=== PATIENT | male | born 2005 | race Caucasian/White ===

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

== ENCOUNTER 2023-03-24 23:00 | Emergency (ER) | payer OTHER, SELFPAY ==
--- NOTE | ~2023-03-24 | XR_ITS ---
EXAMINATION: XR hand LT 2V DATE: 03/25/2023 01:55 INDICATION: Left hand foreign body status post removal. TECHNIQUE: 2 views of left hand were obtained. COMPARISON: Left hand radiographs at 12:01 AM FINDINGS: Bone alignment is normal. No fracture. Joint spaces are normal. There is a punctate density at tip of third digit. IMPRESSION: 1. Punctate radiopaque foreign body in tip of third digit that may be at the skin. Reviewed, dictated and finalized at location E. IMPRESSION: 1. Punctate radiopaque foreign body in tip of third digit that may be at the sk in.
--- NOTE | ~2023-03-24 | XR_ITS ---
EXAMINATION: XR hand LT min 3V DATE: 03/25/2023 00:05 INDICATION: Left hand foreign body. TECHNIQUE: 3 views of left hand were obtained. COMPARISON: None. FINDINGS: Bone alignment is normal. No fracture. Joint spaces are normal. There is a punctate radiopa que foreign body in tip of third digit. There is a laceration of tip of third digit. IMPRESSION: 1. Punctate radiopaque foreign body at tip of third digit. Reviewed, dictated and finalized at location E.
--- NOTE | ~2023-03-24 | XR_ITS ---
EXAMINATION: XR hand RT min 3V DATE: 03/25/2023 00:05 INDICATION: Right hand foreign body. TECHNIQUE: 3 views of right hand were obtained. COMPARISON: None. FINDINGS: Bone alignment is normal. No fracture. Joint spaces are normal. IMPRESSION: 1. No radiopaque foreign body. Reviewed, dictated and finalized at location E.
[2023-03-24 23:02] VITALS: BP 148/83; PULSE 65; RESP 13; TEMP 37; O2SAT 100
[2023-03-25] MEDS: TETANUS,DIPHTHERIA,AC PERTUSSIS ADULT (0.5 ML) BOOSTRIX IM (00:15)
--- NOTE | 2023-03-25 00:47 | ED.GENADULT ---
HPI - General Adult General Chief complaint: Wound/Laceration <YOSELIN Richey Last Filed: 03/25/23 02:42> Stated complaint: bitaleral 3rd finger lacerations <Steven Pizano PA-C - Last Filed: 03/25/23 02:42> Time Seen by Provider: 03/24/23 23:33 <Steven Pizano PA-C - Last Filed: 03/25/23 02:42> Source: patient <YOSELIN Richey Last Filed: 03/25/23 02:42> Mode of arrival: ambulatory <YOSELIN Richey Last Filed: 03/25/23 02:42> Limitations: no limitations <Steven Pizano PA-C - Last Filed: 03/25/23 02:42> History of Present Illness HPI narrative: This is a 17-year-old male who presents to the ED with chief complaint of bilateral third finger lacerations. He had an injury tonight while cutting metal during his night class. Reports that he was try to cut the metal and had it clamped but the clamps failed. This caused the metal to jump up and cut the distal most aspects of his third fingers bilaterally. Reports a lot of initial bleeding but it has since resolved. Denies numbness, weakness. He is unsure of his last tetanus shot. <Steven Pizano PA-C - Last Filed: 03/25/23 02:42> Related Data Allergies/adverse reactions: Allergies Allergy/AdvReac Type Severity Reaction Status Date / Time No Known Allergies Allergy Verified 03/25/23 00:09 <Steven Pizano PA-C - Last Filed: 03/25/23 02:42> Review of Systems Review of Systems: All systems as dictated in HPI <YOSELIN Richey Last Filed: 03/25/23 02:42> [facility] Surgical History Surgical History: Surgical History (Updated 12/09/22 @ 02:12 by Tash Dos Santos NP) No pertinent past surgical history <Steven Pizano PA-C - Last Filed: 03/25/23 02:42> Family History Family History: Family History (Updated 12/09/22 @ 02:12 by Tash Dos Santos NP) Other Alcoholism <Steven Pizano PA-C - Last Filed: 03/25/23 02:42> Social History Social History: Social History (Updated 12/09/22 @ 02:13 by Tash Dos Santos NP) Social History: Patient stated that he stays with a foster family with his 2 other biological siblings. He has another sister but she is located with her father and rarely sees her. The patient is single and has no children. 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 Code status full code Smoking status: Current some day smoker Tobacco type: e-cigarettes/vaping Alcohol intake: current Drinks per week: 7 Substance use: current Substance use type: marijuana Lack of Transportation: No Lack of Food: Never True Current Housing: I Have Housing Concerned About Future Housing: YES Difficulty Paying Gas/Electric Bills: No Difficulty Paying for Meds: No Currently Unemployed: No Education: High School Diploma/GED Difficulty w/ Childcare or Family Care: No Spiritual care concerns: No <Steven Pizano PA-C - Last Filed: 03/25/23 02:42> Exam Narrative: GENERAL: Well-appearing, well-nourished, and in no acute distress. HEAD: Normocephalic, atraumatic. EYES: PERRLA and EOMI. ENT: Nares clear, no rhinorrhea or epistaxis. Mucous membranes moist. Oropharynx without tonsillar hypertrophy exudate or other lesions. NECK: Supple. No adenopathy or masses. CHEST: No respiratory distress. Clear to auscultation. No wheezes rales or rhonchi HEART: Regular rate and rhythm. No murmur heard. Normal peripheral pulses. ABDOMEN: Soft, nontender, nondistended, normal active bowel sounds. MSK: Normal range of motion. No edema. SKIN: 1.5 cm skin flap to the palmar surface of the right third finger. Bleeding controlled. No gaping wound. Again 1.5 cm skin flap laceration to the palmar aspect of the third middle finger on the left hand. This is more distal. Bleeding under control. NEURO: Alert and oriented x3. No focal deficits. PSYCH: Normal mood and affect. <Steven Pizano PA-C - [place]
== END 2023-03-25 01:40 | disposition home or self-care (01) ==
LOC: ANHED 03-25 01:25
PROVIDERS: Emergency Provider Physician Assistant
DX: S61.223A Laceration with foreign body of left middle finger without damage to nail, initial encounter (principal); S61.212A Laceration without foreign body of right middle finger without damage to nail, initial encounter; Z23 Encounter for immunization; F17.290 Nicotine dependence, other tobacco product, uncomplicated; W26.8XXA Contact with other sharp object(s), not elsewhere classified, initial encounter
CPT/HCPCS: 73120; 73130; 90471; 90715; 99284

== ENCOUNTER 2024-11-07 18:54 | Emergency (ER) | payer OTHER, SELFPAY ==
--- NOTE | ~2024-11-07 | CT_ITS ---
History: Blunt trauma PROCEDURE: CT head without contrast. COMPARISON: 12/08/2022 TECHNIQUE: Axial imaging of the head performed from the skull base to the vertex without IV contrast. Sagittal a nd coronal reformations obtained. DLP: 605 mGy-cm FINDINGS: The ventricles are normal in size, shape and position. There is no mass, mass effect or midline shift. There is no abnormal extra-axial fluid collection or intracranial hemorrhage. Visualized paranasal sinuses are clear. The mastoid air cells are well aerated. No acute displaced fractures within the overlying cranium. Impression: No acute intracranial hemorrhage or suspicious mass effect. Reviewed, dictated and finalized at location A. Impression: No acute intracranial hemorrhage or suspicious mass effect.
--- OUTSIDE RECORDS SUMMARY | 2024-11-07 18:56 | XMS_ITS | Continuity of Care Document ---
Author Organization [facility] Address [address] [place] [address] Phone Care Team Providers Care Deputy Manager Name Role Phone Mini Mc MD Unavailable Unavailable Allergies, Adverse Reactions, Alerts Substance Reaction Status Criticality No Known Allergies Active No Inform ation Medications Medication Instructions Dosage Effective Dates (start - stop) Status Comments No Drug Therapy Prescribed Advance Directives Directive Yes / No Effective Date File Name No Information Encounters Encounter Description Practice Location Reason(s) For Visit Diagnoses Date Provider Providers Copied on Encounter [facility], [address], [place], [place], [address] , tel: [phone] [facility] No Information 9 Alexandro Morse. [address], [facility] [place], [address], [place]. [phone] Referring Provider: Mini Mc [address] [facility] [address], [place], [address] . tel:[phone] [facility], [address], [place], [place], [address] , tel:[phone] [facility] Encntr for routine child health exam w/o abnormal findings 7 Alexandro Morse. [address], [facility] [place], [place], [address], . tel:[phone] Referring Provider: Mini Mc, [address], [place], [address] . tel:[phone] [facility], [address], [place], [place], [address] , [place] tel: [phone] [facility] Learning disorder Jul-0 7 Alexandro Morse. [address] , [address], [place], [place], [address], [place]. tel:[phone] Referring Provider: Mini Mc, [address], [place], [address] . tel:[phone] [facility], [address], [place], [place], [address] , tel: [phone] [facility] Encounter for routine childLearning disorder 6 Alexandro Morse. [address] , [address], [place], [place], [address], [place]. tel:[phone] Referring Provider: Mini Mc, [address], [place], [address] . tel:[phone] [facility], [address], [place], [place], [address] , [place] tel: [phone] [facility] Contact dermatitis due to poison floridalma 6 Jules Rivera. [address] [facility], [place], [place], [address], [place]. tel:[phone] Referring Provider: Nicole womack, [address] [facility], [place], [address] . tel:[phone] [facility], [address], [place], [place], [address] , [place] tel: [phone] [facility] Learning disorder 6 Alexandro Morse. [address] , [address], [place], [place], [address], [place]. tel:[phone] Referring Provider: Mini Mc, [address], [place], [address] . tel:[phone] [facility], [address], [place], [place], [address] , tel: [phone] [facility] No Information Alexandro Morse. [address] , [address], [place], [place], [address], . tel:[phone] Referring Provider: Mini Mc, [address], [place], [address] . tel:[phone] [facility], [address], [place], [place], [address] , tel: [phone] [facility] Nocturnal enuresisUpper respiratory tract infection, unspecified upper respiratory infection Alexandro Morse. [address] , [address], [place], [place], [address], . tel:[phone] Referring Provider: Mini Mc, [address], [place], [address] . tel:[phone] [facility], [address], [place], [place], [address] , tel: [phone] [facility] Well child checkAttention deficit disorder with hyperactivityNoc turnal enuresis 4 Alexandro Morse. [address] , [address], [place], [place], [address], [place]. tel:[phone] Referring Provider: Mini Mc, [address], [place], [address] . tel:[phone] [facility], [address], [place], [place], [address] , tel: [phone] [facility] Attention deficit disorder with hyperactivity 4 Dioni Young. [address] , [address], [place], [place], [address], . tel:[phone] Referring Provider: Mini Mc, [address], [place], [address] . tel:[phone] [facility], [address], [place], [place], [address] , tel: [phone] [facility] Routine infant or child health checkRoutine or child health checkAttention deficit disorder with hyperactivityRou bry infant or child health check 3 Alexandro Morse. [address], [address], [place], [place], [address], . tel:[phone] Referring Provider: Mini Mc, [address], [place], [address] . tel:[phone] [facility], [address], [place], [place], [address] , tel: [phone] [facility] ADHD Fe- 3 Alexandro Morse. [address], [address], [place], [place], [address], . tel:[phone] Referring Provider: Mini Mc, [address], [place], [address] . tel:[phone] [facility], [address], [place], [place], [address] , tel: [phone] [facility] Short statureHypothyro idismAttention deficit disorder with hyperactivity 0 2 Domonique Young. [address] , [address], [place], [place], [address], [place]. tel:[phone] Referring Provider: Hector Romano, [address], [place], [address] . tel:[phone] [facility], [address], [place], [place], [address] , tel: [phone] [facility] Attention deficit disorder with hyperactivityGro wth deceleration 2 Alexandro Morse. [address], [address], [place], [place], [address], . tel:[phone] Referring Provider: Mini Mc, [address], [place], [address] . tel:[phone] [facility], [address], [place], [place], [address] , tel: [phone] [facility] Routine or child health checkAttention deficit disorder with hyperactivityDys thymic disorderDysthymi c disorderRoutine or child health check 2 Alexandro Morse. [address], [address], [place], [place], [address], [place]. [phone] Referring Provider: Mini Mc [address], [place], [address] . tel:[phone] [facility], [address], [place], [place], [address] , tel: [phone] [facility] ADHDOppositional defiant disorder 1 Alexandro Morse. [address], [address], [place], [place], [address], [place]. [phone] Referring Provider: Mini Mc [address], [place], [address] . tel:[phone] [facility], [address], [place], [place], [address] , [place] tel: [phone] [facility] NEED FOR PROPHYLACTIC VACCINATION AND INOCULATION, INFLUENZANeed for prophylactic vaccination and inoculation against viralhepatitis 1 Dioni Young. [address], [address], [place], [place], [address], [place]. [phone] Referring Provider: Hector Wheatley [address], [place], [address] . tel:[phone] [facility], [address], [place], [place], [address] , [place] tel:[phone] [facility] Routine infant or child health checkEXAM EARS & HEARING NECExamination of eyes and visionAttention deficit disorder of childhood with hyperactivityNoc turnal enuresisRoutine infant or child health check 1 Alexandro Morse. [address], [address], [place], [place], [address], [place]. [phone] Referring Provider: Heaven [address], [place], [address] . tel:[phone] Family History Family Member Type Diagnosis Age At Onset No Information Immunizations Vaccine Date Status Comments Influenza, injectable, quadrivalent, preservative free, 3 yrs or older administered Source: New Immuniz ation Record meningococcal MCV4P administered Source: New Immunization Record Tdap administered Source: New Imm unization Record Influenza, injectable, quadrivalent, preservative free, 3 yrs or older administered Source: New Immuniz ation Record Influenza, live, intranasal, quadrivalent administered Source: New Immuniza tion Record Influenza virus vaccine, intranasal administered Source: New Immuniza tion Record Flu (split) (3 yrs or older) administered Source: New Immunization Record Hep A (ped/adol, 2 dose) administered Donna rce: New Immunization Record Flu (split) (3 yrs or older) administered Source: New Immunization Record Polio administered Source: New Imm unization Record Varicella administered Source: New Imm unization Record MMR administered Source: New Imm unization Record DTaP/DTP/DT administered Source: New Imm unization Record Hep A administered Source: New Imm unization Record PCV7 administered Source: New Imm unization Record HIB - unspecified administered Note: Set procedure code where blank for historical non-specific HIB entry. ; Source: New Immunization Record DTaP/DTP/DT administered Source: New Imm unization Record Varicella administered Source: New Imm unization Record MMR administered Source: New Imm unization Record PCV7 administered Source: New Imm unization Record Polio administered Source: New Imm unization Record HIB - unspecified administered Note: Set procedure code where blank for historical non-specific HIB entry. ; Source: New Immunization Record Hep B administered Source: New Imm unization Record DTaP/DTP/DT administered Source: New Imm unization Record PCV7 administered Source: New Imm unization Record Polio administered Source: New Imm unization Record HIB - unspecified administered Note: Set procedure code where blank for historical non-specific HIB entry. ; Source: New Immunization Record DTaP/DTP/DT administered Source: New Imm unization Record DTaP administered Source: Other R egistry PCV7 administered Source: New Imm unization Record Polio administered Source: New Imm unization Record HIB - unspecified administered Note: Set procedure code where blank for historical non-specific HIB entry. ; Source: New Immunization Record Hep B administered Source: New Imm unization Record Hep B administered Source: New Imm unization Record Payers Payer name Insurance type Covered democrat ID Authoriza tion(s) [facility] CI [id number] [facility] CI [id number] [facility] CI [id number] Social History Type Description Quantity Date Captured Comments Sex Male Smoking Status No Information Chief Complaint And Reason For Visit No Information Reason For Referral Reason For Referral No Information History Of Present Illness Encounter Date Complaint History Of Prese nt Illness No Information Functional Status Date Functional Assessmen t No Information Medications Administered Medication Instructions Dosage Effective Dates (start - stop) Status Comments No Drug Therapy Prescribed Instructions Date Instruction Additional Infor mation No Information Assessments Type Assessment Date No Information Patient Care Teams Name Effective Dates (start - stop) Status Members No Information
--- OUTSIDE RECORDS SUMMARY | 2024-11-07 18:56 | XMS_ITS | Clinical Summary ---
Author Organization [facility] Care Team Providers Care Tin Whiz Machine Operator Name Role Phone Unavailable Primary Care Provider Unavailabl e Social History Tobacco Use Types Packs/Day Years Used Date Smoking Tobacco: Never Assessed Sex and Gender Information Value Date Recorded Sex Assigned at Not on file Legal Sex Male 8:35 PM CDT Gender Identity Not on file Sexual Orientation Not on file Plan of Treatment Health Maintenance Due Date Last Done Comments Hepatitis C Virus (HCV) Screening 2003 Meningococcal B Immunization (1 of 2 - Standard) 2019 Human Papillomavirus (HPV) Immunization (3 - Male 3-dose series) 04/10/2020 01/17/2020, 03/16/2019 Influenza Immunization (#1) 2024 SARS-COV-2 Immunization (3 - 2023- season) 2024 09/28/2020, 09/07/2020 Respiratory Syncytial Virus (RSV) Immunization (Adult) (1 - 1-dose 75+ series) 12/12/2078 Hepatitis B Immunization Completed 005, 04/15/2004, 02/14/2004, Additional history exists Pneumococcal Immunization Combined Aged Out 06/03/2005, 06/17/2004, 04/15/2004, Additional history exists No longer eligible based on patient's age to complete this topic Measles Mumps Rubella (MMR) Immunization Discontinued 12/14/2007, 02/05/2005 Varicella Immunization Discontinued 12/14/2007, 2004 Hepatitis A Immunization Discontinued 01/09/2008 DTaP/Tdap/Td Immunization Discontinued 2018, 06/03/2005, 06/17/2004, Additional history exists Meningococcal Immunization (ACWY) Aged Out 02/01/2019 No longer eligible based on patient's age to complete this topic Polio (IPV) Immunization Discontinued 019, 06/17/2004, 04/15/2004, Additional history exists TdaP Immunization Completed 02/01/2019 Rotavirus Immunization Aged Out No lo nger eligible based on patient's age to complete this topic
[2024-11-07 19:04] VITALS: BP 166/82; PULSE 96; RESP 16; TEMP 36.7; O2SAT 100
--- OUTSIDE RECORDS SUMMARY | 2024-11-07 19:30 | XMS_ITS | Continuity of Care Document ---
Author Organization [facility] Address [address] [place] [address] Phone Care Team Providers Care Chemical Engineering Professor Name Role Phone Mini Mc MD Unavailable [...] Diagnoses Date Provider Providers Copied on Encounter [facility], [address], [place], [place], [address] , tel: [phone] [facility] No Information 9 Alexandro Morse. [address], [facility] [place], [place], [address], [place]. [phone] Referring Provider: Mini Mc [address] [facility] [address], [place], [address] . tel:[phone] [facility], [address], [place], [place], [address] , tel:[phone] [facility] Encntr for routine child health exam w/o abnormal findings 7 Alexandro Morse. [address], [facility] [place], [place], [address], . tel:[phone] Referring Provider: Mini Mc, [address], [place], [address] . tel:[phone] [facility], [address], [place], [place], [address] , [place] tel: [phone] [facility] Learning disorder Jul-0 7 Alexandro Morse. [address] , [address], [place], [place], [address], [place]. tel:[phone] Referring Provider: Mini Mc, [address], [place], [address] . tel:[phone] [facility], [address], [place], [place], [address] , tel: [phone] [facility] Encounter for routine childLearning disorder 6 Alexandro Morse. [address] , [address], [place], [place], [address], [place]. tel:[phone] Referring Provider: Mini Mc, [address], [place], [address] . tel:[phone] [facility], [address], [place], [place], [address] , [place] tel: [phone] [facility] Contact dermatitis due to poison floridalma 6 Jules Rivera. [address] [facility], [place], [place], [address], [place]. tel:[phone] Referring Provider: Nicole womack, [address] [facility], [place], [address] . tel:[phone] [facility], [address], [place], [place], [address] , [place] tel: [phone] [facility] Learning disorder 6 Alexandro Morse. [address] , [address], [place], [place], [address], [place]. tel:[phone] Referring Provider: Mini Mc, [address], [place], [address] . tel:[phone] [facility], [address], [place], [place], [address] , tel: [phone] [facility] No Information Alexandro Morse. [address] , [address], [place], [place], [address], . tel:[phone] Referring Provider: Mini Mc, [address], [place], [address] . tel:[phone] [facility], [address], [place], [place], [address] , tel: [phone] [facility] Nocturnal enuresisUpper respiratory tract infection, unspecified upper respiratory infection Alexandro Morse. [address] , [address], [place], [place], [address], . tel:[phone] Referring Provider: Mini Mc, [address], [place], [address] . tel:[phone] [facility], [address], [place], [place], [address] , tel: [phone] [facility] Well child checkAttention deficit disorder with hyperactivityNoc turnal enuresis 4 Alexandro Morse. [address] , [address], [place], [place], [address], [place]. tel:[phone] Referring Provider: Mini Mc, [address], [place], [address] . tel:[phone] [facility], [address], [place], [place], [address] , tel: [phone] [facility] Attention deficit disorder with hyperactivity 4 Dioni Young. [address] , [address], [place], [place], [address], . tel:[phone] Referring Provider: Mini Mc, [address], [place], [address] . tel:[phone] [facility], [address], [place], [place], [address] , tel: [phone] [facility] Routine infant or child health checkRoutine or child health checkAttention deficit disorder with hyperactivityRou bry infant or child health check 3 Alexandro Morse. [address], [address], [place], [place], [address], . tel:[phone] Referring Provider: Mini Mc, [address], [place], [address] . tel:[phone] [facility], [address], [place], [place], [address] , tel: [phone] [facility] ADHD Fe- 3 Alexnadro Morse. [address], [address], [place], [place], [address], . tel:[phone] Referring Provider: Mini Mc, [address], [place], [address] . tel:[phone] [facility], [address], [place], [place], [address] , tel: [phone] [facility] Short statureHypothyro idismAttention deficit disorder with hyperactivity 0 2 Domonique Young. [address] , [address], [place], [place], [address], [place]. tel:[phone] Referring Provider: Hector Romano, [address], [place], [address] . tel:[phone] [facility], [address], [place], [place], [address] , tel: [phone] [facility] Attention deficit disorder with hyperactivityGro wth deceleration 2 Alexandro Mores. [address], [address], [place], [place], [address], . tel:[phone] Referring Provider: Mini Mc, [address], [place], [address] . tel:[phone] [facility], [address], [place], [place], [address] , tel: [phone] [facility] Routine or child health checkAttention deficit disorder with hyperactivityDys thymic disorderDysthymi c disorderRoutine or child health check 2 Alexandro Morse. [address], [address], [place], [place], [address], [place]. [phone] Referring Provider: Mini Mc [address], [place], [address] . tel:[phone] [facility], [address], [place], [place], [address] , tel: [phone] [facility] ADHDOppositional defiant disorder 1 Alexandro Morse. [address], [address], [place], [place], [address], [place]. [phone] Referring Provider: Mini Mc [address], [place], [address] . tel:[phone] [facility], [address], [place], [place], [address] , [place] tel: [phone] [facility] NEED FOR PROPHYLACTIC VACCINATION AND INOCULATION, INFLUENZANeed for prophylactic vaccination and inoculation against viralhepatitis 1 Dioni Young. [address], [address], [place], [place], [address], [place]. [phone] Referring Provider: Hector Wheatley [address], [place], [address] . tel:[phone] [facility], [address], [place], [place], [address] , [place] tel:[phone] [facility] Routine infant or child health checkEXAM EARS & HEARING NECExamination of eyes and visionAttention deficit disorder of childhood with hyperactivityNoc turnal enuresisRoutine infant or child health check 1 Alexandro Morse. [address], [address], [place], [place], [address], [place]. [phone] Referring Provider: Heaven [address], [place], [address] . tel:[phone] Family History Family Member Type Diagnosis Age [...] Record Payers Payer name Insurance type Covered alliance party ID Authoriza tion(s) [facility] CI [id number] [facility] CI [id number] [facility] CI [id number] Social History Type Description Quantity Date Captured [...]
--- OUTSIDE RECORDS SUMMARY | 2024-11-07 19:30 | XMS_ITS | Clinical Summary ---
Author Organization [facility] Care Team Providers Care Early Childhood Education Worker Name Role Phone Unavailable Primary Care Provider [...]
--- NOTE | 2024-11-07 19:51 | ED_ITS ---
HPI - Head Injury General Chief complaint: Head Injury Stated complaint: head injury Time Seen by Provider: 11/07/24 19:07 Source: patient Mode of arrival: ambulatory Limitations: no limitations History of Present Illness HPI Narrative: This is a 18 year old male that presents to the ER after a head injury today. Reports he was dodging an object falling from above and hit his head on a car. He did not lose consciousness. Reports nausea, lightheadedness. Denies vision changes, vomiting, numbness, weakness. Related Data Allergies Allergy/AdvReac Type Severity Reaction Status Date / Time No Known Allergies Allergy Verified 11/07/24 19:14 Review of Systems Review of Systems: All systems reviewed & are unremarkable except as noted in HPI and below PMFSH Surgical History Surgical History (Updated 12/09/22 @ 02:12 by Tash Dos Santos, [employer]) No pertinent past surgical history Family History Family History (Updated 12/09/22 @ 02:12 by Tash Dos Santos, [employer]) Other Alcoholism Social History Social History (Updated 12/09/22 @ 02:13 by Tash Dos Santos, [employer]) Social History: Patient stated that he stays with a foster family with his 2 other biological siblings. He has another sister but she is located with her father and rarely sees her. The patient is single and has no children. 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 Code status full code Smoking status: Current some day smoker Tobacco type: e-cigarettes/vaping Alcohol intake: current Drinks per week: 7 Substance use: current Substance use type: marijuana Lack of Transportation: No Lack of Food: Never True Current Housing: I Have Housing Concerned About Future Housing: YES Difficulty Paying Gas/Electric Bills: No Difficulty Paying for Meds: No Currently Unemployed: No Education: High School Diploma/GED Difficulty w/ Childcare or Family Care: No Spiritual care concerns: No Exam Narrative: GENERAL: Well-appearing, well-nourished, and in no acute distress. HEAD: Normocephalic, atraumatic. EYES: PERRLA and EOMI. ENT: Nares clear, no rhinorrhea or epistaxis. Mucous membranes moist. Oropharynx without tonsillar hypertrophy exudate or other lesions. Bilateral TMs pearly brunson non-bulging NECK: Supple. No adenopathy or masses. CHEST: Clear to auscultation. No respiratory distress. No wheezes rales or rhonchi HEART: Regular rate and rhythm. No murmur heard. Normal peripheral pulses. EXTREMITIES: Normal range of motion. No edema. Strength equal in bilateral upper and lower extremities (5/5) SKIN: Warm, dry, no rash. NEURO: No focal deficits. Alert and oriented x3. Cranial nerves 2-12 grossly intact PSYCH: Normal mood and affect Course Course Emergency Course: Patient updated on his workup and agrees with plan of care Vital Signs Vital signs: Vital Signs Temperature 98.0 F 11/07/24 19:04 Pulse Rate 96 11/07/24 19:04 Respiratory Rate 16 11/07/24 19:04 Blood Pressure 166/82 H 11/07/24 19:04 Pulse Oximetry 100 11/07/24 19:04 Oxygen Delivery Room Air 11/07/24 19:04 Temperature 98.0 F 11/07/24 19:04 Pulse Rate 96 11/07/24 19:04 Respiratory Rate 16 11/07/24 19:04 Blood Pressure 166/82 H 11/07/24 19:04 Pulse Oximetry 100 11/07/24 19:04 Oxygen Delivery Room Air 11/07/24 19:04 MDM - Head Injury MDM Narrative Medical decision making narrative: Patient presents to the emergency department after a head injury today. Patient is neurologically. CT brain without acute findings. Patient was updated on his workup. Instructed on further care of concussion. He is to follow up with primary provider. He was given warnings to return to the ER Patient incidentally hypertensive. Instructed to continue to monitor and have further follow-up with PCP for this as well Differential Diagnosis Differential diagnosis: Likely concussion without loss of consciousness, closed head injury and subdural hematoma Imaging Data Radiologist's impression: ITS Impressions Head CT 11/07/24 20:18 Impression: No acute intracranial hemorrhage or suspicious mass effect. Critical Care Time Critical Care Time Critical Care Time: No Discharge Plan Discharge Clinical Impression: Elevated blood pressure reading Head injury Qualifiers: Encounter type: initial encounter Qualified Code(s): S09.90XA - Unspecified injury of head, initial encounter Patient Disposition: Home Condition: Stable Instructions: Concussion (ED) Additional Instructions: Return to the emergency department if you experience fever, vomiting, weakness, numbness, or any other symptoms that are concerning to you. Rest. Remain well hydrated. Tylenol or ibuprofen as needed for pain Follow up with primary care doctor Patient Language: Setswana Prescriptions: No Action amoxicillin-pot clavulanate 875-125 mg tablet 1 tablet PO Q12H Qty: 10 0RF Follow-up/Referrals: PHYSICIAN,INSTRUMENTS SALES REPRESENTATIVE [Primary Care Provider] - Silvio Waldrop MD [Physician] -
[2024-11-07 20:49] VITALS: BP 130/78; PULSE 84; RESP 15; O2SAT 100
== END 2024-11-07 20:53 | disposition home or self-care (01) ==
PROVIDERS: Emergency Provider Physician Assistant
DX: S09.90XA Unspecified injury of head, initial encounter (principal); R03.0 Elevated blood-pressure reading, without diagnosis of hypertension; F17.290 Nicotine dependence, other tobacco product, uncomplicated; W22.8XXA Striking against or struck by other objects, initial encounter
CPT/HCPCS: 70450; 99284